=== PATIENT | female | born 1990 | race Caucasian/White ===

== ENCOUNTER 2017-02-19 08:09 | Emergency (ER) | payer BC, OTHER ==
[~2017-02-19] VITALS: Ht 157.5 cm; Wt 111.7 kg
[~2017-02-19 08:09] MED LIST: FERR325C PO; PREN1TAB62 PO
[2017-02-19 08:10] VITALS: Ht 157.5 cm; Wt 111.7 kg
[2017-02-19] MEDS ORDERED: KETOROLAC 30 MG INJ IV STA (08:53)
[2017-02-19] MEDS ORDERED: DEXAMETHASONE 10 MG/ML 1 ML INJ IV ONE (09:00)
[2017-02-19] MEDS ORDERED: SOD CHLORIDE 0.9% 1,000 ML IV ONE (09:00)
--- NOTE | 2017-02-19 09:08 | ERD ---
ER Documentation Chief Complaint Chief Complaint sore thraot x 3 days , sob since morning , able to talk in full sentences HPI This is a 26-year-old female that presents to the ER for sore throat that started 3 days ago. She states that this morning she woke up and she felt as if her throat was closing. Sore throat has gotten very severe and patient has difficulty in swallowing secondary to sore throat. Patient however can speak in full sentences. She denies any chest pain or shortness of breath. Has not had any fevers or chills. She denies a cough. There are no sick contacts at home. ROS 12 point review of systems was done, all negative except per HPI. Medications Home Meds Active Scripts Ibuprofen* (Motrin*) 600 Mg Tab, 600 MG PO Q6, #30 TAB Prov:MILLY MOURA 02/19/17 Penicillin V Potassium* (Penicillin V K*) 500 Mg Tab, 500 MG PO TID for 10 Days , TAB Prov:MILLY MOURA 02/19/17 Reported Medications Ferrous Sulfate (Iron) 325 Mg Capsr, 325 MG PO 09/08/15 Vit-Iron Fumarate-FA ( Vitamin Tablet) 1 Each Tablet, 1 TAB PO DAILY, TAB 09/08/15 Allergies Allergies: Coded Allergies: No Known Allergy (Unverified , 11/03/15) PMhx/Soc Medical and Surgical Hx: pt denies Medical Hx, pt denies Surgical Hx Hx Alcohol Use: No Hx Substance Use: No Hx Tobacco Use: No Smoking Status: Never smoker Physical Exam Vitals Vital Signs Date Time Temp Pulse Resp B/P Pulse Ox O2 Delivery O2 Flow Rate FiO2 02/19/17 08:10 98.6 112 20 161/80 98 Physical Exam GENERAL: The patient is well developed and appropriate for usual state of health , in no apparent distress. HEENT: Atraumatic. Conjunctivae are pink. Pupils equal, round, and reactive to light. Extraocular muscles are grossly intact. Bilateral tympanic membranes are clear with no evidence of erythema, effusion or dulling of the light reflex. Bilateral swelling of tonsils with tonsillar exudate. Uvular deviation. CHEST: Clear to auscultation bilaterally. There are no rales, wheezes or rhonchi. HEART: Regular rate and rhythm. No murmurs, clicks, rubs or gallops. ABDOMEN: Soft, nontender and nondistended. Good bowel sounds. No rebound or guarding. No gross peritonitis. No gross organomegaly or masses. No Mcnair sign or McBurney point tenderness. BACK: No midline or flank tenderness. NEURO: Alert and oriented. SKIN: There is no apparent rash or petechia. The skin is warm and dry. Result Diagram: 02/19/17 0926 02/19/1726 Results 24 hrs Laboratory Tests Test 02/19/17 09:26 White Blood Count 10.510^3/ul Red Blood Count 4.9710^6/ul Hemoglobin 13.0g/dl Hematocrit 41.4% Mean Corpuscular Volume 83.3fl Mean Corpuscular Hemoglobin 26.2pg Mean Corpuscular Hemoglobin Concent 31.4g/dl Red Cell Distribution Width 13.9% Platelet Count 17675^3/UL Mean Platelet Volume 12.7fl Neutrophils % 64.0% Lymphocytes % 26.3% Monocytes % 6.7% Eosinophils % 1.9% Basophils % 0.8% Nucleated Red Blood Cells % 0.0/100WBC Neutrophils # 6.710^3/ul Lymphocytes # 2.810^3/ul Monocytes # 0.710^3/ul Eosinophils # 0.210^3/ul Basophils # 0.110^3/ul Nucleated Red Blood Cells # 0.010^3/ul Urine Color YELLOW Urine Clarity SLIGHTLY CLOUDY Urine pH 8.0 Urine Specific Crosby 1.025 Urine Ketones NEGATIVEmg/dL Urine Nitrite NEGATIVEmg/dL Urine Bilirubin NEGATIVEmg/dL Urine Urobilinogen 1+mg/dL Urine Leukocyte Esterase TRACELeu/ul Urine Microscopic RBC 5/HPF Urine Microscopic WBC 29/HPF Urine Squamous Epithelial Cells FEW/HPF Urine Hemoglobin NEGATIVEmg/dL Urine Glucose NEGATIVEmg/dL Urine Total Protein NEGATIVEmg/dl Sodium Level 142mmol/L Potassium Level 3.9mmol/L Chloride Level 107mmol/L Carbon Dioxide Level 24mmol/L Anion Gap 15 Blood Urea Nitrogen 11mg/dl Creatinine 0.65mg/dl Glucose Level 126mg/dl Calcium Level 8.8mg/dl Total Bilirubin 0.2mg/dl Direct Bilirubin 0.00mg/dl Indirect Bilirubin 0.2mg/dl Aspartate Amino Transf (AST/SGOT) 25IU/L Alanine Aminotransferase (ALT/SGPT) 37IU/L Alkaline Phosphatase 103IU/L Total Protein 7.3g/dl Albumin 4.1g/dl Globulin 3.20g/dl Albumin/Globulin Ratio 1.28 Current Medications Medications (Trade) Dose Ordered Sig/Tiffanie Route PRN Reason Start Time Stop Time Status Last Admin Dose Admin Dexamethasone (Decadron) 10 mg ONCE ONCE IV 02/19/17 09:00 02/19/17 09:01 DC 02/19/17 09:45 Ketorolac Tromethamine 30 mg 30 mg ONCE STAT IV 02/19/17 08:53 02/19/17 08:56 DC 02/19/17 09:45 Sodium Chloride (NS) 1,000 ml @ 1,000 mls/hr Q1H ONCE IV 02/19/17 09:00 02/19/17 09:59 DC 02/19/17 09:46 Iohexol 150 ml 150 ml STK-MED ONCE .ROUTE 02/19/17 10:28 02/19/17 10:29 DC Sodium Chloride (NS) 100 ml @ ud STK-MED ONCE .ROUTE 02/19/17 10:28 02/19/17 10:29 DC Procedures/MDM This is a 26-year-old female presents here with sore throat for the last 3 days. Patient states that this morning she felt as if her throat was closing and had difficulty in swallowing. Patient was given IV Decadron in the ER with Toradol and upon reexamination she stated she felt significantly better. CT imaging did not show for pharyngeal abscess, peritonsillar abscess, epiglottitis. There was some pharyngeal narrowing. Discussed this finding with my supervising physician Dr. Simpson. Because patient appears and states she feels significantly better after treatment in the ER she will be discharged home with a prescription for penicillin. I gave her strict return precautions. Patient does not see improvement within 12-24 hours and to return to ER immediately or if she develops the same symptoms she was having when she came in. She is afebrile and is not in any distress. She can follow-up with her primary care doctor within 1-2 days return to ER sooner if symptoms worsen. My medical decision making sure with the patient she understands and agrees with plan. Departure Diagnosis: Primary Impression: Pharyngitis Condition: Stable MARTELLFARHANMILLY C Feb 19, 2017 09:08
[2017-02-19 09:49] LABS: BASOPHIL # 0.1 10^3/ul (0.0-0.1); BASOPHILS % 0.8 % (0.0-2.0); EOSINOPHILS # 0.2 10^3/ul (0.0-0.5); EOSINOPHILS % 1.9 % (0.0-7.0); HEMATOCRIT 41.4 % (37.0-47.0); LYMPHOCYTES # 2.8 10^3/ul (0.8-2.9); LYMPHOCYTES % 26.3 % (15.0-51.0); MEAN CORPUSCULAR HEMOGLOBIN 26.2 pg (29.0-33.0); MEAN CORPUSCULAR HGB CONC 31.4 g/dl (32.0-37.0); MEAN CORPUSCULAR VOLUME 83.3 fl (82.0-101.0); MEAN PLATELET VOLUME 12.7 fl (7.4-10.4); MONOCYTE # 0.7 10^3/ul (0.3-0.9); MONOCYTES % 6.7 % (0.0-11.0); NEUTROPHIL # 6.7 10^3/ul (1.6-7.5); PLATELET COUNT 343 10^3/UL (140-415); RED BLOOD COUNT 4.97 10^6/ul (4.20-5.40); RED CELL DISTRIBUTION WIDTH 13.9 % (11.5-14.5); WHITE BLOOD COUNT 10.5 10^3/ul (4.8-10.8)
[2017-02-19 09:56] LABS: ADD UMIC YES; UR ASCORBIC ACID NEGATIVE (NEGATIVE); UR BILIRUBIN (Dip) NEGATIVE (NEGATIVE); UR BLOOD (Dip) NEGATIVE (NEGATIVE); UR CLARITY SLIGHTLY CLOUDY (CLEAR); UR COLOR YELLOW (YELLOW); UR GLUCOSE (Dip) NEGATIVE (NEGATIVE); UR KETONES (Dip) NEGATIVE (NEGATIVE); UR LEUKOCYTE ESTERASE (Dip) TRACE Leu/ul (NEGATIVE); UR NITRITE (Dip) NEGATIVE (NEGATIVE); UR RBC 5 /HPF (0-5); UR SPECIFIC GRAVITY (Dip) 1.025 (1.003-1.030); UR SQUAMOUS EPITHELIAL CELL FEW /HPF (FEW); UR TOTAL PROTEIN (Dip) NEGATIVE (NEGATIVE); UR UROBILINOGEN (Dip) 1+ mg/dL (NEGATIVE)
[2017-02-19 10:16] LABS: ALBUMIN 4.1 g/dl (3.3-4.9); ALBUMIN/GLOBULIN RATIO 1.28; BILIRUBIN,INDIRECT 0.2 mg/dl (0-1.1); BILIRUBIN,TOTAL 0.2 mg/dl (0.2-1.3); CALCIUM 8.8 mg/dl (8.4-10.2); CREATININE 0.65 mg/dl (0.44-1.00); POTASSIUM 3.9 mmol/L (3.5-5.1); TOTAL PROTEIN 7.3 g/dl (6.1-8.1)
[2017-02-19] MEDS ORDERED: IOHEXOL 300MG/ML 150 ML BTL ONE (10:28)
[2017-02-19] MEDS ORDERED: SOD CHLORIDE 0.9% 100 ML ONE (10:28)
--- NOTE | 2017-02-19 11:03 | RADRPT ---
PROCEDURE: CT soft tissue neck with contrast CLINICAL INDICATION: Sore throat, difficulty swallowing TECHNIQUE: The study was performed utilizing a GE 64-slice multidetector CT scanner. Direct thin s ection helically acquired axial sections were obtained through the neck after the uneventful intrave nous administration of 85 cc of Omnipaque-300. Coronal and sagittal reformations were obtained. The images were reviewed on a PACS workstation. The total CTDIvol is 10.36 mGy and the DLP is 233.84 mGy -cm. DICOM images are available. One or more of the following dose reduction techniques were utilized: 1.) Automated exposure control 2.) Adjustment of the mA +/- kV according to patient's size 3.) Use of iterative reconstruction technique. COMPARISON: No prior studies are available for comparison. FINDINGS: The adenoids, and palatine tonsils are enlarged with severe narrowing of the pharynx. The parapharyn geal spaces are normal. No significant inflammatory changes, fluid collection or abscess is seen. Th e epiglottis, vallecula, piriform sinuses and aryepiglottic folds are normal. The bold course are no rmal. The trachea is patent. The tongue, tongue base and floor of the mouth are normal. The thyroid gland is normal in size with no focal mass lesions seen. The submandibular and parotid glands are u nremarkable and normal in appearance. There are multiple enlarged bilateral cervical lymph nodes. Th e carotid vessels are normal in caliber. The lung apices are clear. No osteolytic or blastic lesion is evident. IMPRESSION: Adenoidal and tonsillar hypertrophy with marked narrowing of the pharynx. No evidence of an abscess. Bilateral cervical lymphadenopathy. Physician Patsy Date Time Electronically viewed and signed by Physician Patsy on 02/19/2017 11:03 CS/
[2017-02-19] MEDS ORDERED: IBUP-1542 PO (11:08)
[2017-02-19] MEDS ORDERED: PENI500T PO (11:08)
[2017-02-19 11:16] VITALS: BP 120/64; PULSE 95; RESP 20; TEMP 98.3
== END 2017-02-19 11:17 | disposition home or self-care (01) ==
LOC: FTE 08:09
DX: J02.9 Acute pharyngitis, unspecified (principal)
CPT/HCPCS: 36415; 70491; 80053; 81001; 85025; 96374; 96375; J1100; J1885; J7030; Q9967; Z7502; Z7610

== ENCOUNTER 2017-04-05 01:40 | Emergency (ER) | END 2017-04-05 04:44 | disposition home or self-care (01) ==

== ENCOUNTER 2017-04-29 11:18 | Emergency (ER) | END 2017-04-29 13:36 | disposition home or self-care (01) ==

== ENCOUNTER 2017-08-27 22:31 | Emergency (ER) | END 2017-08-28 03:35 | disposition home or self-care (01) ==

== ENCOUNTER 2017-11-16 20:23 | Emergency (ER) | END 2017-11-16 20:51 | disposition left against medical advice (07) ==

== ENCOUNTER 2018-03-20 03:57 | Emergency (ER) | payer OTHER ==
[~2018-03-20] VITALS: Ht 154.9 cm; Wt 115.3 kg
[~2018-03-20 03:57] MED LIST changes: +ACET160O41 PO; +ACET500C5 PO; +AMOX500C2 PO; +CEPH-443 PO; +IBUP-1542 PO; +IBUP100O28 PO; +PENI250S PO; +PENI500T PO; +SULF1TAB31 PO
[2018-03-20 04:04] VITALS: BP 120/83; PULSE 117; RESP 19; Ht 154.9 cm; Wt 115.3 kg
[2018-03-20] MEDS ORDERED: PENI500T PO (05:08)
[2018-03-20] MEDS ORDERED: IBUP-1542 PO (05:09)
--- NOTE | 2018-03-20 07:35 | ERD ---
ER Documentation Chief Complaint Chief Complaint ST WITH COUGH HPI 27-year-old female presents for sore throat and cough times 1 day. Patient also notes vomiting a few times. States that she feels like her tonsils are closed. Cough noted to be mild. She has had prior similar symptoms before. Denies fevers or chills. Denies chest pain or shortness of breath. ROS All systems reviewed and are negative except as per history of present illness. Medications Home Meds Active Scripts Ibuprofen* (Motrin*) 600 Mg Tab, 600 MG PO Q6H PRN for PAIN AND OR ELEVATED TEMP, #30 TAB Prov:NARA ELKINS DO 03/20/18 Penicillin V Potassium* (Penicillin V K*) 500 Mg Tab, 500 MG PO Q8 for strep pharyngitis for 10 Days, #30 TAB Prov:SEVERONARA DO 03/20/18 Acetaminophen* (Acetaminophen* Susp) 160 Mg/5 Ml Oral.susp, 650 MG PO Q4H PRN for PAIN OR FEVER MDD 5, #2 BOTTLE Prov:YESENIA ORTIZ NP 08/28/17 Ibuprofen (Ibuprofen) 100 Mg/5 Ml Oral.susp, 20 ML PO Q6H PRN for PAIN AND OR ELEVATED TEMP, #8 OZ Prov:YESENIA ORTIZ NP 08/28/17 Penicillin V Potassium* (Veetids 250*) 250 Mg/5 Ml Susp.recon, 10 ML PO Q6 for 10 Days, OZ Prov:YESENIA ORTIZ NP 08/28/17 Acetaminophen* (Tylophen*) 500 Mg Capsule, 1 CAP PO Q6H PRN for PAIN AND OR ELEVATED TEMP, #30 CAP Prov:BAHMAN HAHN-C 04/29/17 Ibuprofen* (Motrin*) 600 Mg Tab, 600 MG PO Q6, #30 TAB Prov:PROBAHMAN SELBY PA-C 18 Amoxicillin* (Amoxicillin*) 500 Mg Cap, 500 MG PO TID for 10 Days, CAP Prov:BAHMAN HAHN PA-C 04/29/17 Ibuprofen* (Motrin*) 600 Mg Tab, 600 MG PO Q6H PRN for PAIN AND OR ELEVATED TEMP, #30 TAB Prov:YESENIA ORTIZ DRAMATIC DIRECTOR 04/05/17 Cephalexin* (Keflex*) 500 Mg Capsule, 500 MG PO QID for 10 Days, CAP Prov:YESENIA ORTIZ. DRAMATIC DIRECTOR 04/05/17 Sulfamethoxazole/Trimethoprim* (Bactrim Ds* Tablet) 1 Each Tablet, 1 TAB PO BID, #20 TAB Prov:YESENIA ORTIZ. DRAMATIC DIRECTOR 04/05/17 Ibuprofen* (Motrin*) 600 Mg Tab, 600 MG PO Q6, #30 TAB Prov:MILLY MOURA Kevin 02/19/17 Penicillin V Potassium* (Penicillin V K*) 500 Mg Tab, 500 MG PO TID for 10 Days, TAB Prov:MILLY MOURA C 02/19/17 Reported Medications Ferrous Sulfate (Iron) 325 Mg Capsr, 325 MG PO 09/08/15 Vit-Iron Fumarate-FA ( Vitamin Tablet) 1 Each Tablet, 1 TAB PO DAILY, TAB 09/08/15 Allergies Allergies: Coded Allergies: No Known Allergy (Unverified , 11/03/15) PMhx/Soc Medical and Surgical Hx: pt denies Medical Hx, pt denies Surgical Hx Hx Alcohol Use: No Hx Substance Use: No Hx Tobacco Use: No Physical Exam Vitals Vital Signs Date Temp Pulse Resp B/P (MAP) Pulse Ox O2 O2 Flow FiO2 Time Delivery Rate 03/20/18 99.5 117 19 120/83 98 04:04 (95) Physical Exam Const: No acute distress Head: Atraumatic Eyes: Normal Conjunctiva ENT: Normal External Ears, bilateral tympanic membrane intact without erythema or bulging noted, nose and Mouth examination normal, there is bilateral tonsillar swelling and exudates noted Neck: Full range of motion. No meningismus. Resp: Clear to auscultation bilaterally, no wheezing, rales, rhonchi Cardio: Regular rate and rhythm, no murmurs Skin: No petechiae or rashes Ext: No cyanosis, or edema Neur: Awake and alert Psych: Normal Mood and Affect Procedures/MDM Medical Decision Making: Differential diagnosis includes but not limited to upper respiratory infection, pneumonia, sepsis, strep pharyngitis. Patient appeared well on physical examination, nontoxic appearing. Lungs were clear to auscultation bilaterally. There is low suspicion for pneumonia, sepsis. Patient did have bilateral tonsillar exudates and swelling on physical examination. Symptoms consistent with strep pharyngitis. Patient gives penicillin and ibuprofen prescription. Patient advised to follow up with PCP in 1-2 days. Patient advised to return to ED for new or worsening symptoms. Patient stable on discharge from the ED. Disclaimer: Inadvertent spelling and grammatical errors are likely due to EHR/dictation software use and do not reflect on the overall quality of patient care. Also, please note that the electronic time recorded on this note does not necessarily reflect the actual time of the patient encounter. Departure Diagnosis: Primary Impression: Strep pharyngitis Condition: Fair Patient Instructions: Pharyngitis, Strep (Presumed) Additional Instructions: Call your primary care doctor TOMORROW for an appointment during the next 1-2 days.See the doctor sooner or return here if your condition worsens before your appointment time. NARA ELKINS DO Mar 20, 2018 07:35
== END 2018-03-20 05:27 | disposition home or self-care (01) ==
LOC: FTE 03:57
DX: J02.0 Streptococcal pharyngitis (principal)
CPT/HCPCS: 99283

== ENCOUNTER 2018-06-30 04:40 | Emergency (ER) | payer OTHER ==
[~2018-06-30] VITALS: Ht 154.9 cm; Wt 114.9 kg
[2018-06-30 04:44] VITALS: BP 136/66; PULSE 110; RESP 20; Ht 154.9 cm; Wt 114.9 kg
[2018-06-30] MEDS ORDERED: PRED20TA PO (06:53)
--- NOTE | 2018-06-30 06:56 | ERD ---
ER Documentation Chief Complaint Chief Complaint sore throat x 5 days, also c/o vomiting. on atb HPI 28-year-old female is here complaining of sore throat and cough. She is currently taking amoxicillin. She states sometimes when she coughs she has trouble clearing phlegm. She is also had some posttussive vomiting. No abdominal pain. No fever. ROS All systems reviewed and are negative except as per history of present illness. Medications Home Meds Active Scripts Prednisone* (Prednisone*) 20 Mg Tab, 60 MG PO DAILY for 5 Days, TAB Prov:JOSE LUIS ESCAMILLA PA-C 06/30/18 Ibuprofen* (Motrin*) 600 Mg Tab, 600 MG PO Q6H PRN for PAIN AND OR ELEVATED TEMP, #30 TAB Prov:NARA ELKINS DO 03/20/18 Penicillin V Potassium* (Penicillin V K*) 500 Mg Tab, 500 MG PO Q8 for strep pharyngitis for 10 Days, #30 TAB Prov:NARA ELKINS DO 03/20/18 Acetaminophen* (Acetaminophen* Susp) 160 Mg/5 Ml Oral.susp, 650 MG PO Q4H PRN for PAIN OR FEVER MDD 5, #2 BOTTLE Prov:YESENIA ROTIZ NP 08/28/17 Ibuprofen (Ibuprofen) 100 Mg/5 Ml Oral.susp, 20 ML PO Q6H PRN for PAIN AND OR ELEVATED TEMP, #8 OZ Prov:YESENIA ORTIZ NP 08/28/17 Penicillin V Potassium* (Veetids 250*) 250 Mg/5 Ml Susp.recon, 10 ML PO Q6 for 10 Days, OZ Prov:YESENIA ORTIZ NP 08/28/17 Acetaminophen* (Tylophen*) 500 Mg Capsule, 1 CAP PO Q6H PRN for PAIN AND OR ELEVATED TEMP, #30 CAP Prov:BAHMAN HAHNC 04/29/17 Ibuprofen* (Motrin*) 600 Mg Tab, 600 MG PO Q6, #30 TAB Prov:BAHMAN HAHN-C 04/29/17 Amoxicillin* (Amoxicillin*) 500 Mg Cap, 500 MG PO TID for 10 Days, CAP Prov:BAHMAN HAHN-C 04/29/17 Ibuprofen* (Motrin*) 600 Mg Tab, 600 MG PO Q6H PRN for PAIN AND OR ELEVATED TEMP, #30 TAB Prov:YESENIA ORTIZBushra GUIDANCE ADVISER 04/05/17 Cephalexin* (Keflex*) 500 Mg Capsule, 500 MG PO QID for 10 Days, CAP Prov:YESENIA ORTIZBushra GUIDANCE ADVISER 04/05/17 Sulfamethoxazole/Trimethoprim* (Bactrim Ds* Tablet) 1 Each Tablet, 1 TAB PO BID, #20 TAB Prov:YESENIA ORTIZ. GUIDANCE ADVISER 04/05/17 Ibuprofen* (Motrin*) 600 Mg Tab, 600 MG PO Q6, #30 TAB Prov:MILLY MOURA Kevin 02/19/17 Penicillin V Potassium* (Penicillin V K*) 500 Mg Tab, 500 MG PO TID for 10 Days, TAB Prov:MILLY MOURA Kevin 02/19/17 Reported Medications Ferrous Sulfate (Iron) 325 Mg Capsr, 325 MG PO 09/08/15 Vit-Iron Fumarate-FA ( Vitamin Tablet) 1 Each Tablet, 1 TAB PO DAILY, TAB 09/08/15 Allergies Allergies: Coded Allergies: No Known Allergy (Unverified , 11/03/15) PMhx/Soc Medical and Surgical Hx: pt denies Medical Hx, pt denies Surgical Hx Hx Alcohol Use: No Hx Substance Use: No Hx Tobacco Use: No Smoking Status: Never smoker FmHx Family History: No diabetes Physical Exam Vitals Vital Signs Date Temp Pulse Resp B/P (MAP) Pulse Ox O2 O2 Flow FiO2 Time Delivery Rate 06/30/18 99.6 110 20 136/66 97 04:44 (89) Physical Exam INITIAL VITAL SIGNS: Reviewed by me GENERAL: Awake, alert and oriented x 4, well appearing, nontoxic, speaking in full sentences. No acute distress HEAD: Atraumatic NECK: Supple. No masses. Full range of motion. No meningismus. No midline tenderness. EYES: EOMI. PERRL. EAR: No tenderness over the mastoids bilaterally. No exudates in the canals. TMs nonerythematous. NOSE: Normal nose. THROAT: No tonilar erythema or edema. No exudates. Uvula midline. No kissing tonsils. RESPIRATORY: Clear to auscultation bilaterally. Symmetric chest wall rise. No wheezing or rales. No accessory muscle use. CV: Regular rate and rhythm. No murmurs, rubs, or gallops. Procedures/MDM 28-year-old is here with sore throat and cough. She is already taking antibiotics. Her exam is normal. She states she is been having trouble clearing phlegm when she coughs and considers this to be vomiting and it is uncomfortable for her at times. Prescription for short course of prednisone given. Patient counseled regarding my diagnostic impression and care plan. Prior to discharge all questions answered. Pt agrees with treatment plan and understands strict return precautions. Pt is instructed to follow up with primary care provider within 24-48 hours. Precautionary instructions provided including instructions to return to the ER if not improving or for any worsening or changing symptoms or concerns. Departure Diagnosis: Primary Impression: Bronchitis Condition: Stable Patient Instructions: Bronchitis, Antiobiotic Treatment (Adult) Additional Instructions: Call your primary care doctor TOMORROW for an appointment during the next 1-2 days.See the doctor sooner or return here if your condition worsens before your appointment time. JOSE ULIS ESCAMILLA PA-C June 30, 2018 06:56
== END 2018-06-30 07:25 | disposition home or self-care (01) ==
LOC: FTE 04:40
DX: J40 Bronchitis, not specified as acute or chronic (principal)
CPT/HCPCS: 99283

== ENCOUNTER 2018-07-18 19:49 | Emergency (ER) | payer OTHER ==
[~2018-07-18] VITALS: Ht 152.4 cm; Wt 117.1 kg
[~2018-07-18 19:49] MED LIST changes: +PRED20TA PO
[2018-07-18 19:59] VITALS: Ht 152.4 cm; Wt 117.1 kg
[2018-07-18] MEDS ORDERED: IBUPROFEN 600 MG TAB PO ONE (21:30)
--- NOTE | 2018-07-18 21:42 | ERD ---
ER Documentation Chief Complaint Chief Complaint PRODUCTIVE COUGH SINCE AM MIDSTERNAL CHEST WALL PAIN HPI 28-year-old female presents with complaint of chest wall pain as well as boil in her left armpit. States that she experienced a brief episode of chest pain today. Has not had an episode like this before. Denies any current chest pain. Denies any shortness of breath, diaphoresis, pain made worse upon exertion, leg swelling, leg erythema, history of malignancy, history of clotting disorder, hemoptysis, cough. Denies any fevers, chills. ROS All systems reviewed and are negative except as per history of present illness. Medications Home Meds Active Scripts Sulfamethoxazole/Trimethoprim* (Bactrim Ds* Tablet) 1 Each Tablet, 1 TAB PO BID, #14 TAB Prov:DANIEL DENNY 07/18/18 Cephalexin* (Keflex*) 500 Mg Capsule, 500 MG PO QID for 7 Days, CAP Prov:DANIEL DENNY 07/18/18 Prednisone* (Prednisone*) 20 Mg Tab, 60 MG PO DAILY for 5 Days, TAB Prov:JOSE LUIS ESCAMILLA PA-C 06/30/18 Ibuprofen* (Motrin*) 600 Mg Tab, 600 MG PO Q6H PRN for PAIN AND OR ELEVATED TEMP, #30 TAB Prov:NARA ELKINS DO 03/20/18 Penicillin V Potassium* (Penicillin V K*) 500 Mg Tab, 500 MG PO Q8 for strep pharyngitis for 10 Days, #30 TAB Prov:NARA ELKINS DO 03/20/18 Acetaminophen* (Acetaminophen* Susp) 160 Mg/5 Ml Oral.susp, 650 MG PO Q4H PRN for PAIN OR FEVER MDD 5, #2 BOTTLE Prov:YESENIA ORTIZ NP 08/28/17 Ibuprofen (Ibuprofen) 100 Mg/5 Ml Oral.susp, 20 ML PO Q6H PRN for PAIN AND OR ELEVATED TEMP, #8 OZ Prov:YESENIA ORTIZ NP 08/28/17 Penicillin V Potassium* (Veetids 250*) 250 Mg/5 Ml Susp.recon, 10 ML PO Q6 for 10 Days, OZ Prov:YESENIA ORTIZ NP 08/28/17 Acetaminophen* (Tylophen*) 500 Mg Capsule, 1 CAP PO Q6H PRN for PAIN AND OR ELEVATED TEMP, #30 CAP Prov:BAHMAN HAHN-C 04/29/17 Ibuprofen* (Motrin*) 600 Mg Tab, 600 MG PO Q6, #30 TAB Prov:BAHMAN HAHN-C 04/29/17 Amoxicillin* (Amoxicillin*) 500 Mg Cap, 500 MG PO TID for 10 Days, CAP Prov:BAHMAN HAHN-C 04/29/17 Ibuprofen* (Motrin*) 600 Mg Tab, 600 MG PO Q6H PRN for PAIN AND OR ELEVATED TEMP, #30 TAB Prov:YESENIA ORTIZ VENDING MACHINE HOST/HOSTESS 04/05/17 Cephalexin* (Keflex*) 500 Mg Capsule, 500 MG PO QID for 10 Days, CAP Prov:YESENIA ORTIZ VENDING MACHINE HOST/HOSTESS 04/05/17 Sulfamethoxazole/Trimethoprim* (Bactrim Ds* Tablet) 1 Each Tablet, 1 TAB PO BID, #20 TAB Prov:YESENIA ORTIZ VENDING MACHINE HOST/HOSTESS 04/05/17 Ibuprofen* (Motrin*) 600 Mg Tab, 600 MG PO Q6, #30 TAB Prov:MILLY MOURA 02/19/17 Penicillin V Potassium* (Penicillin V K*) 500 Mg Tab, 500 MG PO TID for 10 Days, TAB Prov:MILLY MOURA 02/19/17 Reported Medications Ferrous Sulfate (Iron) 325 Mg Capsr, 325 MG PO 09/08/15 Vit-Iron Fumarate-FA ( Vitamin Tablet) 1 Each Tablet, 1 TAB PO DAILY, TAB 09/08/15 Allergies Allergies: Coded Allergies: No Known Allergy (Unverified , 11/03/15) PMhx/Soc History of Surgery: Yes (eye sx years ago) Hx Alcohol Use: No Hx Substance Use: No Hx Tobacco Use: No Smoking Status: Never smoker FmHx Family History: No diabetes, No coronary disease, No other Physical Exam Vitals Vital Signs Date Temp Pulse Resp B/P (MAP) Pulse Ox O2 O2 Flow FiO2 Time Delivery Rate 07/18/18 100.5 120 20 175/81 99 19:59 (112) Physical Exam Const: No acute distress Head: Atraumatic Eyes: Normal Conjunctiva ENT: Normal External Ears, Nose and Mouth. Neck: Full range of motion. No meningismus. Resp: Clear to auscultation bilaterally Cardio: Regular rate and rhythm, no murmurs Abd: Soft, non tender, non distended. Normal bowel sounds Skin: Approximately half centimeter draining abscess noted under the left axilla with some overlying erythema. It is non-indurated or fluctuant. No lymphatic streaking noted. Back: No midline or flank tenderness Ext: No cyanosis, or edema Neur: Awake and alert Psych: Normal Mood and Affect Results 24 hrs Laboratory Tests Test 07/18/18 21:29 07/18/18 21:57 Troponin I < 0.012 ng/ml POC Beta HCG, Qualitative NEGATIVE Current Medications Medications Dose Sig/Tiffanie Start Time Status Last (Trade) Ordered Route PRN Stop Time Admin Dose Reason Admin Ibuprofen 600 mg ONCE ONCE 07/18/18 DC 07/18/18 (Motrin) PO 21:30 21:31 07/18/18 21:31 Procedures/MDM DIAGNOSTIC IMAGING REPORT Patient: FRANCOIS POLLOCK : 1990 Age: 28 Sex: F MR #: [id number] DOS: 07/18/182115 Ordering MD: DANIEL DENNY Location: [facility] Room/Bed: PROCEDURE: XR 1 view Chest. CLINICAL INDICATION: Chest pain. TECHNIQUE: Portable Single frontal view of the chest was obtained. COMPARISON: There are no similar studies submitted for comparison. FINDINGS: The heart is normal in size. There is no focal consolidation. There is no pleural effusion. No pneumothorax is identified. The osseous structures are intact. IMPRESSION: No evidence for acute cardiopulmonary disease. Further findings as detailed above. RPTAT: HVF .Pal Martinez MD, MD Date Time Electronically viewed and signed by .Pal Martinez MD, MD on 07/18/2018 22:16 .F/ CC: DANILE DENNY [id number] EKG: Rate/Rhythm: Normal Sinus Rhythm QRS, ST, T-waves: No changes consistent w/ acute ischemia Impression: No evidence of ischemia or arrhythmia DM: Troponin was negative. Chest x-ray within normal limits. EKG was within normal limits. Advise follow-up with cardiology she has continued episodes. I have low suspicition for acute coronary syndrome, pulmonary embolism, aortic dissection, AAA, pneumothorax, esophageal rupture, pericarditis, myocarditis, or pneumonia based on EKG, imaging, labs, patient history and exam. Patient's abscess is not ready to be drained at this time it is nonfluctuant and appears to be self draining. Patient given Rx for Keflex and Bactrim. I will suspicion for acute space infection, lymphangitis, or any other emergent condition. Patient discharged with strict ER precautions. Patient advised to follow up with PMD. All questions answered at discharge. Departure Diagnosis: Primary Impression: Chest wall pain Additional Impression: Abscess Condition: Stable DANIEL DENNY July 18, 2018 21:42
[2018-07-18] MEDS ORDERED: CEPH-443 PO (21:43)
[2018-07-18] MEDS ORDERED: SULF1TAB31 PO (21:43)
[2018-07-18 23:31] VITALS: BP 141/80; PULSE 112; RESP 18
== END 2018-07-18 23:32 | disposition home or self-care (01) ==
LOC: FTE 19:49
DX: R07.89 Other chest pain (principal); L02.412 Cutaneous abscess of left axilla
CPT/HCPCS: 36415; 71045; 81025; 84484; 87880; 93005; Z7502; Z7610